=== PATIENT | female | born 1995 | race Caucasian/White ===

== ENCOUNTER 2019-01-30 07:11 | Emergency (ER) | payer SELFPAY ==
[~2019-01-30] VITALS: Ht 160 cm; Wt 63.6 kg
[2019-01-30 09:40] VITALS: BP 131/75
== END 2019-01-30 09:54 | disposition home or self-care (01) ==
LOC: EMS 07:16
DX: J18.9 Pneumonia, unspecified organism (principal); Z88.8 Allergy status to other drugs, medicaments and biological substances; R51 Headache